=== PATIENT | female | born 1970 | race African-American/Black ===

== ENCOUNTER 2023-03-01 08:42 | Emergency (ER) | payer OTHER ==
[2023-03-01 08:47] VITALS: BP 139/67; PULSE 70; RESP 17; TEMP 98.1; BMI 34.2
[2023-03-01] MEDS ORDERED: METHOCARBAMOL 500 MG TABLET PO ONE (09:02)
[2023-03-01] MEDS ORDERED: KETOROLAC TROMETHAMINE 30 MG/1 ML VIAL IM ONE (09:02)
[2023-03-01] MEDS ORDERED: METHOCARBAMOL 500 MG TABLET ONE ×2 (09:17→09:22)
[2023-03-01] MEDS ORDERED: KETOROLAC TROMETHAMINE 30 MG/1 ML VIAL ONE (09:18)
[2023-03-01 09:29] LABS: BASO % 0.8 % (0-2.0); HEMATOCRIT 36.4 % (32.4-45.2); MCH 29.1 pg (25.7-33.7); MCHC 32.9 g/dl (32.0-36.0); MEAN CELL VOLUME 88.2 fl (80-96); MEAN PLT VOLUME 8.6 fl (7.5-11.1); MONO % 11.2 % (3.8-10.2); PLATELET COUNT 217 10^3/uL (134-434); RBC 4.12 M/mm3 (3.60-5.2); RDW 13.1 % (11.6-15.6); URINE APPEARANCE CLEAR; URINE BILIRUBIN NEGATIVE (NEGATIVE); URINE COLOR YELLOW; URINE GLUCOSE (UA) NEGATIVE (NEGATIVE); URINE KETONE NEGATIVE (NEGATIVE); URINE LEUK ESTERASE NEGATIVE (NEGATIVE); URINE NITRITE NEGATIVE (NEGATIVE); URINE PROTEIN NEGATIVE (NEGATIVE); URINE UROBILINOGEN 0.2 mg/dL (0.2-1.0); WHITE BLOOD COUNT 6.3 K/mm3 (4.0-10.0)
[2023-03-01 09:50] LABS: POTASSIUM 4.1 mmol/L (3.5-5.1)
[2023-03-01 09:52] LABS: CALCIUM 9.2 mg/dL (8.5-10.1)
[2023-03-01 09:53] LABS: ALBUMIN 3.8 g/dl (3.4-5.0)
[2023-03-01 09:56] LABS: CREATININE 0.8 mg/dL (0.55-1.3)
[2023-03-01 09:58] LABS: BILIRUBIN,TOTAL 0.3 mg/dL (0.2-1); TOT PROT 7.3 g/dl (6.4-8.2)
== END 2023-03-01 10:39 | disposition home or self-care (01) ==
LOC: JERFT 08:42
PROC: 3E0233Z Introduction of Anti-inflammatory into Muscle, Percutaneous Approach (ICD-10-PCS; principal; 2023-03-01)
DX: M54.50 Low back pain, unspecified (principal)
CPT/HCPCS: 36415; 80053; 81003; 85025; 87086; 96372; 99284-25

== ENCOUNTER 2023-09-13 04:20 | Day surgery (SDC) | payer OTHER ==
[2023-09-11 07:51] VITALS: BMI 33.8
[2023-09-13 09:50] VITALS: TEMP 97.5
[2023-09-13 11:30] VITALS: RESP 12
[2023-09-13 11:33] VITALS: BP 118/70; PULSE 67
== END 2023-09-13 13:00 | disposition home or self-care (01) ==
LOC: JASU-ENDO 04:20
PROVIDERS: ATTEND Internal Medicine Gastroenterology
PROC: 0DJD8ZZ Inspection of Lower Intestinal Tract, Via Natural or Artificial Opening Endoscopic (ICD-10-PCS; principal; 2023-09-13 12:00)
DX: Z12.11 Encounter for screening for malignant neoplasm of colon (principal)